=== PATIENT | female | born 1980 | race Hispanic/Latino ===

== ENCOUNTER 2016-07-10 19:49 | Emergency (ER) | payer OTHER ==
[~2016-07-10] VITALS: Ht 157.5 cm; Wt 47.7 kg
[~2016-07-10 19:49] MED LIST: ESOM40CA41 PO; OMEP20CA11 PO
[2016-07-10 20:12] VITALS: BP 102/68; PULSE 61; RESP 16; O2SAT 98
[2016-07-10 21:09] LABS: BASOPHILS % (AUTO) 0.3 % (0-3); MONOCYTES % (AUTO) 7.9 % (4-12); Mean Corpuscular Hemoglobin 28.3 pg (27.0-35.0); Mean Corpuscular Volume 85.7 fL (81-100); NEUTROPHILS % (AUTO) 53.9 % (40-74); Platelet Count 217 bil/L (150-400)
[2016-07-10 21:33] LABS: Magnesium 2.1 mg/dL (1.6-2.6)
--- NOTE | 2016-07-10 22:21 | ED.REPORT ---
HPI-Abd Pain F Under 40 Date of Service Jul 10, 2016 ED Provider: Chris Gilbert MD Patient is a 36 year old female who presents to the ED with LLQ abdominal pain that began at noon today. She reports that her pain started has just a discomfort, possibly due to gas or position. However her pain worsened in severity over the course of the day, now sharp and stabbing. She admits to nausea but denies vomiting. She states that her pain is worse when she tried to have a bowel movement or stand up. The patient just completed her menstrual period, which was normal. Patient reports prior appendectomy, but she denies any other abdominal surgeries. Patient also reports having upper back pain recently, which she has been treating with Ibuprofen. Patient denies recent constipation, diarrhea, dark or tarry stool, dysuria, increased urination, or fever. Nursing Notes Stated Complaint: STOMACH PAIN Chief Complaint: Female Abdominal Pain Nursing Notes Reviewed: Yes Allergies: Coded Allergies: iron dextran complex (Verified Allergy, Unknown, 07/10/16) Uncoded Allergies: AMONIA-HAIR DYE (Allergy, Unknown, 07/10/16) Scheduled Esomeprazole Magnesium (Nexium) 40 Mg Capsule.dr 40 MG PO BID Omeprazole (Omeprazole) 20 Mg Capsule.dr 20 MG PO BID General Time Seen by MD: 22:21 Chief Complaint Abdominal pain Hx Obtained From: Patient Arrived By: Walk-in Sudden in Onset?: No Onset Occurred: 9 - 12 hours ago Symptom Duration: Since onset Progression since Onset: Gradually worsening Location: : LLQ Quality: Painful, Stabbing Severity: Current: Moderate Severity: Maximum: Severe Recent Healthcare: No recent doctor visit, No recent hospitalization Similar Sx Previous: No Past Medical History Past Medical History asthma with Past Surgical History Reports: Appendectomy Smoking History Never Smoker Social History Alcohol Use: Denies alcohol use Other Social History: Good social support, , Lives with children, Local resident Ambulatory Status Independent Review of Systems Constitutional: Denies: Chills, Fever GI: Reports: Abdominal pain, Nausea, Denies: Bloody/tarry stool, Constipation, Diarrhea, Vomiting Female: Denies: Dysuria, Urination increased, Vaginal bleeding - abnl Musculoskeletal: Reports: Back pain Complete sys rev & neg: except as marked. Physical Exam Initial Vital Signs Vital Signs (First) Date Time Temp Pulse Resp B/P Pulse Ox O2 Delivery O2 Flow Rate FiO2 1/30/17 20:12 36.4 61 16 102/68 98 Room Air Initial VS: Reviewed Head / Eyes: Atraumatic, Normocephalic, PERRL Neck: Supple, Full range of motion Extremities: Vascular intact, Neuro intact Neurologic: Alert, Oriented, Nonfocal Psychiatric: Mood/affect normal, Behavior normal, Normal thought content General/Constitutional: Awake, Alert, No acute distress, Well hydrated Respiratory / Chest: Breath sounds NL, Breath sounds = bilat, No respiratory distress, No rales, No rhonchi, No wheezing Cardiovascular: Heart rate NL, Regular rhythm, No murmurs Abdomen: Soft, BS normoactive Tenderness/Guarding/Rebound: Positive: Tender LLQ... (Moderate) Back: No midline vertebral tend, No CVA tenderness Interpretation & Diagnostics Lab Results Interpretation Result Diagram: 07/10/16204907/10/162049 Test 07/10/16 20:50 07/10/16 22:24 07/10/16 22:30 White Blood Count 9.1th/mm3 (3.8-10.1) Red Blood Count 4.35mil/mm3 (3.90-5.20) Hemoglobin 12.3g/dL (12.0-15.6) Hematocrit 37.3% (35.0-46.0) Mean Corpuscular Volume 85.7fL (81-100) Mean Corpuscular Hemoglobin 28.3pg (27.0-35.0) Mean Corpuscular Hemoglobin Concent 33.0% (32.0-37.0) Red Cell Distribution Width 12.9% (12.3-15.4) Platelet Count 217bil/L (150-400) Neutrophils (%) (Auto) 53.9% (40-74) Lymphocytes (%) (Auto) 35.8% (14-46) Monocytes (%) (Auto) 7.9% (4-12) Eosinophils (%) (Auto) 2.0% (0-5) Basophils (%) (Auto) 0.3% (0-3) Sodium Level 141mEq/L (134-144) Potassium Level 3.9mEq/L (3.5-5.2) Chloride Level 103mEq/L (97-108) Carbon Dioxide Level 25mmol/L (18-29) Blood Urea Nitrogen 21mg/dL (6-20) Creatinine 0.60mg/dL (0.57-1.00) Estimat Glomerular Filtration Rate 162mL/min (>59) Glucose Level 99mg/dL (60-99) Calcium Level 9.5mg/dL (8.5-10.1) Magnesium Level 2.1mg/dL (1.6-2.6) Total Bilirubin 0.3mg/dL (0.0-1.2) Aspartate Amino Transf (AST/SGOT) 13U/L (0-50) Alanine Aminotransferase (ALT/SGPT) 10U/L (0-32) Alkaline Phosphatase 56U/L (25-150) Total Protein 7.5g/dL (6.4-8.4) Albumin 4.5g/dL (3.4-5.0) Lipase 39U/L (13-60) Hold Urine Received (Received) Urine Color Yellow (YELLOW) Urine Appearance Clear (CLEAR,HAZY) Urine pH 6.0 (5.0-8.0) Urine Specific [place] 1.025 (1.003-1.035) Urine Protein Negativemg/dL (NEG,TRACE) Urine Glucose (UA) Negativemg/dL (NEGATIVE) Urine Ketones Tracemg/dL (NEGATIVE) Urine Occult Blood Negative (NEGATIVE) Urine Nitrite Negative (NEGATIVE) Urine Bilirubin Negative (NEGATIVE) Urine Urobilinogen Normalmg/dL (NORMAL) Urine Leukocyte Esterase Negative (NEGATIVE) Urine RBC 0-2/hpf (0-2) Urine WBC 0-5/hpf (0-5) Urine Epithelial Cells Few/hpf (NONE-MOD) Urine Crystals Oxalic acid crystals (NONE Urine Bacteria Few/hpf (NONE-FEW) Urine Hyaline Casts None/lpf (NONE) Urine Granular Casts None seen (NONE SEEN) Urine Waxy Casts None seen (NONE SEEN) Urine Red Blood Cell Casts None seen (NONE SEEN) Urine White Blood Cell Casts None seen (NONE SEEN) Urine Mucus Present (None Seen) Urine Trichomonas None seen (NONE SEEN) Urine Yeast None (NONE SEEN) Urinalysis Comment None Urine Culture Reflexed Not indicated Urine HCG, Qualitative Negative (Negative) X-Ray Abdominal Interpretation Impression: Constipation. Interpretation / Wet Read by: Wet read ED physician Re-Eval/Medical Decision Med Decision/Clinical Course Med Decision/Clinical Course: Healthy 36-year-old presents with left-sided abdominal pain. She denies any constipation, but the only finding on evaluation is abundant stool on her flat and erect abdomen. Urine is negative and remainder of her lab unremarkable. Exam is basic benign with minimal left-sided tenderness. Discharged home with milk of magnesia and citrate of Magnesia and Dulcolax for AM use. Follow up with PCP. Source of Hx: Old records Re-Evaluation/Progress : Time of Eval: 00:33 Patient Status: Condition improved Re-Evaluation/Progress Note: Rechecked the patient, who was informed that she is constipated per x-ray. Her labs did not show any acute process. Patient understands and agrees with the plan to be discharged home. Discharge instructions and follow-up discussed. All questions were addressed. Return to the ED warnings given. Counseled Regarding: Diagnosis, Lab results, Need for follow-up, When/why to return to ED Discharge & Departure Primary Impression: Constipation Constipation type: unspecified constipation type Qualified Code: K59.00 - Constipation, unspecified Additional Impression: Abdominal pain Abdominal location: left lower quadrant Qualified Code: R10.32 - Left lower quadrant pain Disposition: Home Discharge Condition All VS Reviewed: Yes Condition: Stable Patient Instructions: Acute Abdominal Pain (ED), Constipation (ED) Additional Instructions: Your labs are normal and reassuring. Your x-ray shows significant stool. we do not find evidence of appendicitis or other significant pathology at the moment. However, abdomen is require serial follow-up if they are not improving. If you are still having pain tomorrow, and particularly if it is worse, or you develop other new symptoms, return for reassessment. If you do not have a significant bowel movement in the morning, use a Dulcolax suppository, and drink the bottle of magnesium citrate. If the milk of magnesia tonight results and a good bowel movement, then continue with a tablespoon nightly for three nights. Follow-up with your doctor in the office. Referrals: Stephanie Whitney (PCP) Shira Attestation Portions of this note were transcribed by Shania Obrien. I, Dr. Gilbert personally performed the history, physical exam and medical decision-making; I reviewed and confirmed the accuracy of the information in the transcribed note. Signed by: Shira Thomas 07/11/2016 0128 copies to: Stephanie Whitney Christopher W MD Jul 10, 2016 22:21 Shania Obrien Jul 10, 2016 22:29
[2016-07-10 23:09] VITALS: BP 92/53; PULSE 62; O2SAT 99
[2016-07-10 23:34] LABS: APPEARANCE,URINE CLEAR (CLEAR,HAZY); COLOR,URINE YELLOW (YELLOW); OCCULT BLOOD,URINE NEGATIVE (NEGATIVE); UROBILINOGEN,URINE NORMAL (NORMAL)
[2016-07-11] MEDS ORDERED: Magnesium Hydroxide 10 mL Oral Concentration PO ONE (00:35)
[2016-07-11 00:51] VITALS: BP 121/67; PULSE 79; RESP 17; O2SAT 99
--- NOTE | 2016-07-11 08:49 | DRSVH ---
PROCEDURE: X-RAY ABDOMEN WITH ERECT AND/OR DECUBITUS VIEWS ([id number]) INDICATIONS: abdo pain/nausea TECHNIQUE: 2 views of the abdomen were acquired. COMPARISON: None. FINDINGS: Surgical changes and devices: None. Bowel: No pneumoperitoneum. Moderate colonic stool otherwise normal bowel gas pattern.. Soft tissues: No masses; visualized solid organ contours appear normal in size. No suspicious abdom inal calcifications. Bones: No suspicious bony abnormalities. IMPRESSION: Mild fecal loading. Dictated by: Mike ESPINOZA Interpreted: Eber Epps MD on 07/11/2016 at 8:48 Transcribed by: BETTY on 07/11/2016 at 8:48 Approved by: Wilber Epps M.D. on 07/11/2016 at 9:27
== END 2016-07-11 00:51 | disposition home or self-care (01) ==
LOC: SED 19:49
DX: K59.00 Constipation, unspecified (principal); R10.32 Left lower quadrant pain; Z88.8 Allergy status to other drugs, medicaments and biological substances